=== PATIENT | female | born 1950 | race Hispanic/Latino ===

== ENCOUNTER 2019-04-04 10:50 | Outpatient (CLI) | payer MEDICARE ==
--- NOTE | 2019-04-04 14:41 | Mammography Report ---
BONE DEXA:04/04/19 10:50:00 CLINICAL: Postmenopausal. No comparison. TECHNIQUE: Two site bone DEXA performed on an Hologic scanner. FINDINGS: The average BMD of the lumbar spine L1-L4 is 0.901g/cm squared with a T-score of -1.3 and a Z-score of +0.6. The average BMD of the left hip is 0.864g/cm squared with a T-score of -0.6 and a Z-score of +0.7. The left femoral neck BMD is 0.598 g/cm squared with a T score of -2.3 and a Z score of -0.6. IMPRESSION: WHO classification: Osteopenia with increased fracture risk based on both lumbar spine and left femoral neck measurements. RECOMMENDATION: Clinical correlation and routine screening. DEFINITIONS: BMD = Bone Mineral Density T-score = BMD related to mean peak bone mass of young adult (mean expressed in Standard Deviation) Z-score = Age matched BMD expressed in SD World Health Organization (WHO) Diagnostic Criteria Normal T-score > -1 SD Osteopenia T-score between -1 and -2.4 SD Osteoporosis T-score -2.5 SD or below NOTE: BMD is not the only risk factor for fracture. One should also consider factors such as the patient's age, risk of falling, previous osteoporotic fracture, family history of osteoporotic fractures, current smoker, and low body weight. Z-scores are not calculated if >80 years of age.
== END 2019-04-04 10:51 | disposition home or self-care (01) ==
LOC: SPVWC 10:50
PROVIDERS: ATTEND Nurse Practitioner
DX: M85.88 Other specified disorders of bone density and structure, other site (principal); Z78.0 Asymptomatic menopausal state
CPT/HCPCS: 77080

== ENCOUNTER 2019-09-04 10:39 | Outpatient (CLI) | payer MEDICARE ==
--- NOTE | 2019-09-04 14:10 | Mammography Report ---
DIGITAL DIAGNOSTIC MAMMOGRAM WITH CAD, -- 09/04/2019 INDICATION: Follow-up for bilateral probably benign calcifications. TECHNIQUE: Digital bilateral mammographic imaging was performed. Magnification views were obtained. This examination was interpreted with the benefit of Computer-aided Detection analysis. COMPARISON: 10/24/2018 FINDINGS: Breast Density: The breasts are heterogeneously dense, which may obscure small masses. There is no evidence of dominant mass, suspicious calcifications or architectural distortion in eithe r breast. Multiple groups of a bilateral calcifications have benign morphology and are stable. IMPRESSION: No mammographic evidence of malignancy. Bilateral benign calcifications. Follow up recommendation: Routine yearly BI-RADS Category 2: Benign. A "normal" or negative report should not discourage follow up or biopsy of a clinically significant f inding. A written summary of these findings will be mailed to the patient. The patient will be entered into a mammography reporting system which will generate a reminder letter for the patient's next appointmen t at the appropriate interval. According to the [employer], yearly mammograms are recommended starting at age 40 and continuing as long as a woman is in good health. Breast MRI is recommended for women with an tyron roximately 20-25% or greater lifetime risk of breast cancer, including women with a strong family his tory of breast or ovarian cancer and women who have been treated for Hodgkin's disease. Signer Name: Kurt Fitzpatrick MD Signed: 09/04/2019 2:06 PM Workstation Name: [id number]
== END 2019-09-04 10:40 | disposition home or self-care (01) ==
LOC: SPVWC 10:39
PROVIDERS: ATTEND Internal Medicine
DX: R92.0 Mammographic microcalcification found on diagnostic imaging of breast (principal)
CPT/HCPCS: 77066

== ENCOUNTER 2021-04-15 10:40 | Outpatient (CLI) | payer MEDICARE ==
--- NOTE | 2021-04-15 11:31 | Mammography Report ---
DEXA BONE DENSITY SCAN INDICATION / CLINICAL INFORMATION: ASYMPTOMATIC POSTMENOPAUSAL STATUS Z78.0. 70 years Female COMPARISON: 04/04/2019. LUMBAR SPINE, L1-L4: - Bone mineral density (BMD) = 0.910 g/cm2. - T-score = -1.2 - Z-score = 0.8 Change (%) since most recent prior (if available): Increase of 1.0% LEFT HIP, NECK : - Bone mineral density (BMD) = 0.661 g/cm2. - T-score = -1.7 - Z-score = 0.1 Change (%) since most recent prior (if available): None available. IMPRESSION: 1. WHO Classification: Osteopenia. Fracture Risk: Increased. BMD Reporting Guidelines (ISCD, 2015) BMD Reporting in Postmenopausal Women and in Men Age 50 and Older * T-scores are preferred. * The WHO densitometric classification is applicable. BMD Reporting in Females Prior to Menopause and in Males Younger Than Age 50 * Z-scores, not T-scores, are preferred. This is particularly important in children. * A Z-score of -2.0 or lower is defined as below the expected range for age, and a Z-score above -2. 0 is within the expected range for age. * Osteoporosis cannot be diagnosed in men under age 50 on the basis of BMD alone. * The WHO diagnostic criteria may be applied to women in the menopausal transition. http://www.iscd.org/official-positions/9662-ydmi-gcsterkj-positions-adult/ Signer Name: Santy Ghotra MD Signed: 04/15/2021 11:27 AM Workstation Name: [id number][id number]
== END 2021-04-15 10:41 | disposition home or self-care (01) ==
LOC: SPVWC 10:40
PROVIDERS: ATTEND Internal Medicine
DX: Z13.820 Encounter for screening for osteoporosis (principal); M85.88 Other specified disorders of bone density and structure, other site; Z78.0 Asymptomatic menopausal state
CPT/HCPCS: 77080